=== PATIENT | female | born 1980 | race Caucasian/White ===

== ENCOUNTER 2017-06-01 07:39 | Emergency (ER) | payer MEDICAID ==
[~2017-06-01] VITALS: Ht 170.2 cm; Wt 106.0 kg
[~2017-06-01 07:39] MED LIST: ALBUAER3 INH; FLUC150T PO; METO50TA PO; MONT10TA2 PO; VERA1TAB17 PO
[2017-06-01 07:43] VITALS: BP 160/105; PULSE 71; RESP 16; TEMP 98; O2SAT 100
--- NOTE | 2017-06-01 08:08 | PD ---
HPI Chief Complaint: Dizziness Time Seen by Provider: 07:55 Travel History International Travel<30 days: No Contact w/Intl Traveler<30days: No Traveled to known affect area: No History of Present Illness HPI 36yo F presents to the ED with c/o her spinning and nausea since last night. States it is worst with head movement. +Tinnitus right ear. Denies any fever, headache, chest pain, sob, vomiting, abdominal pain, focal weakness or numbness. Pt states she had a history of SVT but now off metoprolol. Pt had migraine headache before but currently denies it. Also denies any recent illness. PFSH Past Medical History Blood Disorders: No Heart Rhythm Problems: Yes (svt) Cardiac Catheterization: No Cardiovascular Problems: Yes (svt) High Cholesterol: No Congestive Heart Failure: No Diabetes: No Diminished Hearing: No Heparin Induced Thrombocytopen: No Hypertension: No Immunizations Current: No Tetanus Vaccination: Unknown ?: Not : 4 Para: 4 Tubal Ligation: Yes Past Surgical History Coronary Artery Bypass Graft: No Hysterectomy: Yes Family History Family Myocardial Infarction: No Family Hypercholesterolemia: Yes Social History Alcohol Use: Yes (SOC) Tobacco Use: No Substance Use: No Allergies-Medications (Allergen,Severity, Reaction): Coded Allergies: No Known Allergies (Unverified , 06/01/17) Reported Meds & Prescriptions Reported Meds & Active Scripts Active No Active Prescriptions or Reported Medications Review of Systems Except as stated in HPI: all other systems reviewed are Neg Physical Exam Narrative GENERAL: 36yo F in mild distress. SKIN: Focused skin assessment warm/dry. HEAD: Atraumatic. Normocephalic. EYES: Pupils equal and round. No scleral icterus. No injection or drainage. + Right horizontal nystagmus. ENT: No nasal bleeding or discharge. Mucous membranes pink and moist. NECK: Trachea midline. No JVD. CARDIOVASCULAR: Regular rate and rhythm. No murmur appreciated. RESPIRATORY: No accessory muscle use. Clear to auscultation. Breath sounds equal bilaterally. GASTROINTESTINAL: Abdomen soft, non-tender, nondistended. No rebound tenderness or guarding. MUSCULOSKELETAL: No obvious deformities. No clubbing. No cyanosis. No edema. NEUROLOGICAL: Awake and alert. No obvious cranial nerve deficits. Motor grossly within normal limits. Normal speech. PSYCHIATRIC: Appropriate mood and affect; insight and judgment normal. Data Data Last Documented VS Vital Signs Date Time Temp Pulse Resp B/P Pulse Ox O2 Delivery O2 Flow Rate FiO2 06/01/17 07:50 16 100 Room Air 06/01/17 07:43 98.0 71 160/105 Orders Ed Urine Pregnancytest Poc (06/01/17 07:44) Electrocardiogram (06/01/17 ) Complete Blood Count With Diff (06/01/17 08:04) Basic Metabolic Panel (Bmp) (06/01/17 08:04) Ondansetron Inj (Zofran Inj) (06/01/17 08:15) Meclizine (Antivert) (06/01/17 08:15) Labs Laboratory Tests Test 06/01/17 08:10 White Blood Count 7.4 TH/MM3 Red Blood Count 4.69 MIL/MM3 Hemoglobin 12.4 GM/DL Hematocrit 37.3 % Mean Corpuscular Volume 79.6 FL Mean Corpuscular Hemoglobin 26.4 PG Mean Corpuscular Hemoglobin 33.1 % Concent Red Cell Distribution Width 16.3 % Platelet Count 319 TH/MM3 Mean Platelet Volume 9.3 FL Neutrophils (%) (Auto) 70.2 % Lymphocytes (%) (Auto) 21.4 % Monocytes (%) (Auto) 6.2 % Eosinophils (%) (Auto) 1.7 % Basophils (%) (Auto) 0.5 % Neutrophils # (Auto) 5.2 TH/MM3 Lymphocytes # (Auto) 1.6 TH/MM3 Monocytes # (Auto) 0.5 TH/MM3 Eosinophils # (Auto) 0.1 TH/MM3 Basophils # (Auto) 0.0 TH/MM3 CBC Comment DIFF FINAL Differential Comment Sodium Level 141 MEQ/L Potassium Level 3.7 MEQ/L Chloride Level 108 MEQ/L Carbon Dioxide Level 27.3 MEQ/L Anion Gap 6 MEQ/L Blood Urea Nitrogen 10 MG/DL Creatinine 0.80 MG/DL Estimat Glomerular Filtration 81 ML/MIN Rate Random Glucose 95 MG/DL Calcium Level 8.8 MG/DL [facility] Medical Decision Making Medical Screen Exam Complete: Yes Emergency Medical Condition: Yes Interpretation(s) EKG: NSR 68bpm. Normal axis. No ST segment elevation or depression. Laboratory Tests Test 06/01/17 08:10 White Blood Count 7.4 TH/MM3 (4.0-11.0) Red Blood Count 4.69 MIL/MM3 (4.00-5.30) Hemoglobin 12.4 GM/DL (11.6-15.3) Hematocrit 37.3 % (35.0-46.0) Mean Corpuscular Volume 79.6 FL (80.0-100.0) Mean Corpuscular Hemoglobin 26.4 PG (27.0-34.0) Mean Corpuscular Hemoglobin 33.1 % Concent (32.0-36.0) Red Cell Distribution Width 16.3 % (11.6-17.2) Platelet Count 319 TH/MM3 (150-450) Mean Platelet Volume 9.3 FL (7.0-11.0) Neutrophils (%) (Auto) 70.2 % (16.0-70.0) Lymphocytes (%) (Auto) 21.4 % (9.0-44.0) Monocytes (%) (Auto) 6.2 % (0.0-8.0) Eosinophils (%) (Auto) 1.7 % (0.0-4.0) Basophils (%) (Auto) 0.5 % (0.0-2.0) Neutrophils # (Auto) 5.2 TH/MM3 (1.8-7.7) Lymphocytes # (Auto) 1.6 TH/MM3 (1.0-4.8) Monocytes # (Auto) 0.5 TH/MM3 (0-0.9) Eosinophils # (Auto) 0.1 TH/MM3 (0-0.4) Basophils # (Auto) 0.0 TH/MM3 (0-0.2) CBC Comment DIFF FINAL Differential Comment Sodium Level 141 MEQ/L (136-145) Potassium Level 3.7 MEQ/L (3.5-5.1) Chloride Level 108 MEQ/L (98-107) Carbon Dioxide Level 27.3 MEQ/L (21.0-32.0) Anion Gap 6 MEQ/L (5-15) Blood Urea Nitrogen 10 MG/DL (7-18) Creatinine 0.80 MG/DL (0.50-1.00) Estimat Glomerular Filtration 81 ML/MIN (>89) Rate Random Glucose 95 MG/DL (74-106) Calcium Level 8.8 MG/DL (8.5-10.1) Differential Diagnosis Benign peripheral vertigo vs. dehydration vs. electrolyte abnormality vs. anemia Narrative Course 36yo F with spinning sensation, right tinnitus and nausea, symptoms that are consistent with vertigo. EKG unremarkable. Labs reviewed, no leukocytosis. H/ H stable at 12.4/37.3. BMP unremarkable. Pt given meclizine 25mg PO and zofran 4mg IV. Pt reevaluated at beside and states her symptoms have improved. Denies any more nausea and spinning has improved. Pt had hysterectomy so urine which was initially ordered by nurse was not completed. Pt's symptoms are classic for vertigo and has an ENT that she can follow with. Will give information of our ENT senior contracts administrator in case she is not able to follow up with her own ENT. Return precautions given. Diagnosis Primary Impression: Vertigo Referrals: Jamey Kaplan MD as needed Symptoms consistent with peripheral vertigo Patient Instructions: General Instructions Departure Forms: Tests/Procedures Additional Instructions: Please follow up with your ENT in 1-2 days. Return to the ED if symptoms worsen. Med/Other Pt SpecificInfo: Prescription(s) given Scripts Ondansetron Odt (Zofran Odt)4 Mg Tab4 Mg SL Q12HR PRN (Nausea/Vomiting) #7 TAB Ref 0 Prov:Kristel Galeana DO 06/01/17 Meclizine 25 Mg Tab25 Mg PO TID PRN (VERTIGO) 3 Days Ref 0 Prov:Kristel Galeana DO 06/01/17 Disposition: 01 DISCHARGE HOME Condition: Stable Kristel Galeana DO Jun 01, 2017 08:08
[2017-06-01] MEDS ORDERED: ONDANSETRON HCL 4 MG/2 ML VIAL IV PUSH ONE (08:15)
[2017-06-01] MEDS ORDERED: MECLIZINE HCL 25 MG TAB PO ONE (08:15)
[2017-06-01 08:19] LABS: AUTOMATED NEUTROPHIL # 5.2 TH/MM3 (1.8-7.7); BASOPHIL % 0.5 % (0.0-2.0); EOSINOPHIL # 0.1 TH/MM3 (0-0.4); EOSINOPHIL % 1.7 % (0.0-4.0); HEMATOCRIT 37.3 % (35.0-46.0); HEMO FLAGS DIFF FINAL; LYMPH % 21.4 % (9.0-44.0); LYMPHOCYTE # 1.6 TH/MM3 (1.0-4.8); MEAN CELL VOLUME 79.6 FL (80.0-100.0); MEAN CORPUSCULAR HEMOGLOBIN 26.4 PG (27.0-34.0); MEAN CORPUSCULAR HGB CONC 33.1 % (32.0-36.0); MONO % 6.2 % (0.0-8.0); NEUT % 70.2 % (16.0-70.0); PLATELET COUNT 319 TH/MM3 (150-450); RED BLOOD COUNT 4.69 MIL/MM3 (4.00-5.30); RED CELL DISTRIBUTION WIDTH 16.3 % (11.6-17.2); WHITE BLOOD COUNT 7.4 TH/MM3 (4.0-11.0)
[2017-06-01 08:28] LABS: POTASSIUM 3.7 MEQ/L (3.5-5.1)
[2017-06-01 08:31] LABS: BICARBONATE 27.3 MEQ/L (21.0-32.0)
[2017-06-01] MEDS ORDERED: ZOFR4TAB3 SL (08:51)
[2017-06-01] MEDS ORDERED: MECL-62 PO (08:51)
[2017-06-01 08:56] VITALS: BP 157/85
--- NOTE | 2017-06-01 13:51 | EKG ---
Date Performed: 06/01/2017 Time Performed: 08:22:51 PTAGE: 36 years EKG: Sinus rhythm Since previous tracing, no significant change noted NORMAL ECG PREVIOUS TRACING : 07/28/2016 20.47 DOCTOR: Kong Sunshine Interpretating Date/Time 06/01/2017 13:49:35
== END 2017-06-01 09:05 | disposition home or self-care (01) ==
LOC: PHED 07:39
DX: R42 Dizziness and giddiness (principal); I47.1 Supraventricular tachycardia
CPT/HCPCS: 80048; 85025; 93005; 96374; 99284; J2405

== ENCOUNTER 2017-11-30 08:57 | Emergency (ER) | payer MEDICAID ==
[~2017-11-30] VITALS: Ht 167.6 cm; Wt 110.5 kg
[~2017-11-30 08:57] MED LIST changes: -ALBUAER3 INH; -FLUC150T PO; +MECL-62 PO; -METO50TA PO; -MONT10TA2 PO; -VERA1TAB17 PO; +ZOFR4TAB3 SL
[2017-11-30 09:10] VITALS: BP 153/89; PULSE 76; RESP 18; TEMP 98.5; O2SAT 99
[2017-11-30] MEDS ORDERED: BACT800T5 PO (09:26)
[2017-11-30] MEDS ORDERED: CEPH-460 PO (09:26)
--- NOTE | 2017-11-30 09:28 | PD ---
HPI Chief Complaint: Eye Problems/Injury Time Seen by Provider: 09:22 Travel History International Travel<30 days: No Contact w/Intl Traveler<30days: No Traveled to known affect area: No History of Present Illness HPI 37-year-old male presents for evaluation of right periorbital swelling and pain. Symptoms started 5 days ago. She reports a soreness which is worse with palpation primarily of the upper eyelid of the right eye. Denies any pain in the eye itself. She was seen by her primary care physician yesterday and diagnosed with conjunctivitis and started on tobramycin ophthalmic drops. Because her symptoms are in the periorbital skin itself she presents here for reevaluation. Denies any fevers, chills, cough, congestion. No other complaints. PFSH Past Medical History Blood Disorders: No Heart Rhythm Problems: Yes (svt) Cardiac Catheterization: No Cardiovascular Problems: Yes (svt) High Cholesterol: No Congestive Heart Failure: No Diabetes: No Diminished Hearing: No Heparin Induced Thrombocytopen: No Hypertension: No Immunizations Current: No Influenza Vaccination: No ?: Not : 4 Para: 4 Tubal Ligation: Yes Past Surgical History Coronary Artery Bypass Graft: No Hysterectomy: Yes Family History Family Hypercholesterolemia: Yes Social History Alcohol Use: No Tobacco Use: No Substance Use: No Allergies-Medications (Allergen,Severity, Reaction): Coded Allergies: No Known Allergies (Unverified , 06/01/17) Reported Meds & Prescriptions Reported Meds & Active Scripts Active Keflex (Cephalexin) 500 Mg Cap 500 Mg PO Q8H Bactrim DS (Sulfamethoxazole-Trimethoprim) 800-160 Mg Tab 1 Tab PO BID Review of Systems Except as stated in HPI: all other systems reviewed are Neg Physical Exam Narrative GENERAL: Well-developed well-nourished female in no acute distress SKIN: Warm and dry. Erythema to the right periorbital region, primarily right upper eyelid. HEAD: Atraumatic. Normocephalic. EYES: Pupils equal and round reactive to light extraocular muscles are intact, no pain with extraocular range of motion, no proptosis. No scleral icterus. No injection or drainage. ENT: No nasal bleeding or discharge. Mucous membranes pink and moist. NECK: Trachea midline. No JVD. CARDIOVASCULAR: Regular rate and rhythm. No murmur appreciated. RESPIRATORY: No accessory muscle use. Clear to auscultation. Breath sounds equal bilaterally. Data Data Last Documented VS Vital Signs Date Time Temp Pulse Resp B/P (MAP) Pulse Ox O2 Delivery O2 Flow Rate FiO2 11/30/17 09:10 98.5 76 18 153/89 (110) 99 MDM Medical Decision Making Medical Screen Exam Complete: Yes Emergency Medical Condition: Yes Medical Record Reviewed: Yes Differential Diagnosis Periorbital cellulitis, stye, orbital cellulitis Narrative Course Examination reveals right periorbital cellulitis. No evidence of orbital cellulitis. Discussed signs and symptoms that would warrant returning to the emergency room. She is being discharged with Bactrim and Keflex. Diagnosis Primary Impression: Periorbital cellulitis of right eye Additional Instructions: Medication as prescribed. Warm compresses several times a day 15 minutes at a time. Return for any emergent medical conditions. Med/Other Pt SpecificInfo: Prescription(s) given Scripts Cephalexin (Keflex) 500 Mg Cap 500 MG PO Q8H for Infection, #30 CAP 0 Refills Prov: Remi Russo MD 11/30/17 Sulfamethoxazole-Trimethoprim (Bactrim DS) 800-160 Mg Tab 1 TAB PO BID for Infection, #20 TAB 0 Refills Prov: Remi Russo MD 11/30/17 Disposition: 01 DISCHARGE HOME Condition: Stable Jeovany Rubin Nov 30, 2017 09:28
== END 2017-11-30 09:44 | disposition home or self-care (01) ==
LOC: PHEFT 08:57
DX: L03.213 Periorbital cellulitis (principal); I47.1 Supraventricular tachycardia
CPT/HCPCS: 99284